=== PATIENT | male | born 1970 | race Caucasian/White ===

== ENCOUNTER 2019-10-20 12:08 | Outpatient (CLI) | payer OTHER, SELFPAY ==
[2019-10-20 12:40] LABS: Basophils Absolute Auto 0.1 K/mm3 (0.0-0.1); Basophils Percent Auto 0.8 % (0.2-1.2); Eosinophils Absolute Auto 0.1 K/mm3 (0-0.3); Eosinophils Percent Auto 1.7 % (0-4.4); Hematocrit 41.8 % (42.0-52.0); Hemoglobin 14.4 g/dL (14.0-18.0); Immature Granulocyte Absolute 0.05 K/mm3 (0.00-0.031); Immature Granulocyte Percent A 0.8 % (0-0.5); Lymphocytes Absolute Auto 1.76 K/mm3 (0.9-3.2); Lymphocytes Percent Auto 29.2 % (18.3-44.2); Mean Corpuscular HGB Conc 34.4 g/dl (32-36); Mean Corpuscular Hemoglobin 30.1 pg (26-34); Mean Corpuscular Volume 87.4 fl (80-100); Mean Platelet Volume 12.5 fl (7.4-10.4); Monocytes Absolute Auto 0.6 K/mm3 (0.1-0.6); Monocytes Percent Auto 9.1 % (2.6-8.5); Neutrophils Absolute Auto 3.5 K/mm3 (1.3-6.7); Neutrophils Percent Auto 58.4 % (45.5-73.1); Platelet Count Result 234 k/mm3 (150-375); Red Blood Count 4.78 M/mm3 (4.6-6.20); Red Cell Distribution Width 13.2 % (11.5-14.5)
[2019-10-20 12:57] LABS: Alanine Aminotransferase 28 U/L (4-50); Albumin Level 4.5 g/dL (3.5-5.1); Alkaline Phosphatase 62 U/L (38-126); Aspartate Amino Transferase 30 U/L (17-59); Bilirubin,Total 0.8 mg/dL (0.2-1.3); Blood Urea Nitrogen 15 mg/dL (9-20); Calcium 9.2 mg/dL (8.4-10.2); Carbon Dioxide 30 mmol/L (22-30); Chloride 98 mmol/L (98-107); Cholesterol 106 mg/dL (0-200); Estimated Glomerular Filt Rate > 60; Glucose 138 mg/dL (75-110); HDL Direct 35 mg/dL; Potassium 3.5 mmol/L (3.4-5.0); Sodium 135 mmol/L (137-145); Triglycerides 112 mg/dL (<150)
[2019-10-20 13:11] LABS: Hemoglobin A1C 8.3 % (<5.7)
[2019-10-20 13:14] LABS: LDL Cholesterol Direct 59 mg/dL
== END 2019-10-20 12:09 | disposition home or self-care (01) ==
DX: I10 Essential (primary) hypertension (principal); R73.09 Other abnormal glucose
CPT/HCPCS: 36415; 80053; 80061; 83036; 85025

== ENCOUNTER 2020-10-22 11:38 | Outpatient (CLI) | payer OTHER, SELFPAY ==
[2020-10-22 12:17] LABS: Alanine Aminotransferase 25 U/L (4-50); Albumin Level 4.6 g/dL (3.5-5.1); Alkaline Phosphatase 57 U/L (38-126); Anion Gap 11 mmol/L (8-16); Aspartate Amino Transferase 28 U/L (17-59); Bilirubin,Total 0.7 mg/dL (0.2-1.3); Blood Urea Nitrogen 15 mg/dL (9-20); Calcium 9.6 mg/dL (8.4-10.2); Carbon Dioxide 27 mmol/L (22-30); Chloride 99 mmol/L (98-107); Cholesterol 115 mg/dL (0-200); Estimated Glomerular Filt Rate > 60; Glucose 108 mg/dL (75-110); HDL Direct 40 mg/dL; Hemoglobin A1C 6.9 % (<5.7); Potassium 3.9 mmol/L (3.4-5.0); Sodium 137 mmol/L (137-145); Triglycerides 105 mg/dL (<150)
[2020-10-22 12:28] LABS: LDL Cholesterol Direct 52 mg/dL
[2020-10-22 12:46] LABS: Creatinine Urine 80.7 mg/dL
[2020-10-22 13:09] LABS: MALB Creatinine Ratio < 7.4 mg/g (0-30); Microalbumin Urine Random < 6.0 mg/L (0-16.7)
== END 2020-10-22 11:39 | disposition home or self-care (01) ==
LOC: ANHLAB 11:40
PROVIDERS: PCP Family Medicine; Visit Provider Family Medicine
DX: E08.65 Diabetes mellitus due to underlying condition with hyperglycemia (principal); E78.6 Lipoprotein deficiency; I10 Essential (primary) hypertension
CPT/HCPCS: 36415; 80053; 80061; 82043; 83036

== ENCOUNTER 2022-02-23 07:42 | Outpatient (CLI) | payer OTHER, SELFPAY ==
--- NOTE | 2022-03-19 18:02 | WPDSLEEPSTUD ---
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 Complains of frequent snoring and fatigue. This has been worsening over the last 2 years. There is a family history with his brother having sleep apnea. He wakes up during the night. He rarely awakens from sleep feeling short of breath. He frequently awakens at night with heartburn, belching or coughing. He frequently snores loudly enough that others complain. He occasionally has trouble sleeping with a cold. He does not gasp for breath at night or have breathing problems at night reported to him by others. Does not sweat excessively at night. Occasionally notices his heart pounding or beating irregularly at night. He rarely falls asleep during the day, rarely falls asleep involuntarily. he does not fall asleep while driving. fall asleep he denies loss of muscle tone with strong emotion. He does not have daytime difficulties with his job due to excessive sleepiness. Does not feel paralyzed on waking or falling asleep. He occasionally has vivid dreamlike scenes upon awakening or falling asleep. He does not feel afraid to go to sleep. He rarely has nightmares. He frequently remembers his dreams. He occasionally has racing thoughts. He does not feel sad or depressed. He occasionally has anxiety. He rarely has muscular tension. He does not notice parts of his body jerking. He does not kick at night. He rarely has crawling and aching feelings in his legs. He rarely has any kind of leg pain at night. He does not have morning jaw pain. Does not grind his teeth at night. He rarely is bothered by pain during the day. He is not awakened by pain at night. He occasionally wakes up feeling stiff in the morning. He rarely wakes up with sore achy muscles. He occasionally has pain in the spine on waking. Normal bedtime is 11:00 p.m. falling asleep within 5 minutes typically waking twice at night for 1-2 minutes. During this time, he changes position. He wakes the morning at 6:00 a.m.. On weekends, bedtime is 11:30 p.m.. Wake-up is 7:00 a.m.. He estimates getting 7 hours of sleep at night. He sometimes takes naps in the afternoon or evening. A short nap is not refreshing. He is usually drowsy for an hour after waking. He feels better in the morning compared to other times of day. Only occasionally does he awaken feeling refreshed. Habits: No tobacco. Caffeine 1 glass of tea a day and 16 oz of coffee a day. No alcohol or recreational drugs. [facility] Past Medical History Medical History Dyslipidemia Hypertension Type 2 diabetes mellitus Social History Social History Smoking status: Never smoker Medications Home Medications Medication Instructions Recorded Confirmed Type amlodipine 10 mg tablet 10 mg PO DAILY 02/07/22 02/07/22 History dulaglutide 0.75 mg/0.5 mL 0.75 mg subcut WEEKLY 02/07/22 02/07/22 History subcutaneous pen injector (Trulicity) eszopiclone 2 mg tablet (Lunesta) 2 mg PO ONCE #1 tablet 02/07/22 02/07/22 Rx losartan 100 1 tablet PO DAILY 02/07/22 02/07/22 History mg-hydrochlorothiazide 25 mg tablet metformin 500 mg tablet 500 mg PO BID 02/07/22 02/07/22 History Sleep Procedure This test was performed using the [employer] Video SleepFliqq multiple channel system including EOG, EEG, submental EMG, EKG, nasal and oral airflow using thermistors and nasal pressure sensors, chest and abdominal belts for body position data, and pulse oximetry. Video monitoring was also performed. The study was scored u
[2022-03-19 18:15] VITALS: BMI 42.9
== END 2022-02-24 06:14 | disposition home or self-care (01) ==
PROVIDERS: PCP Family Medicine; Visit Provider Physician Assistant
DX: G47.33 Obstructive sleep apnea (adult) (pediatric) (principal); G47.10 Hypersomnia, unspecified; Z68.41 Body mass index [BMI] 40.0-44.9, adult
CPT/HCPCS: 95811

== ENCOUNTER 2022-05-09 09:17 | Outpatient (CLI) | payer OTHER, SELFPAY ==
[2022-05-09 10:28] LABS: LDL Cholesterol Direct 68 mg/dL
[2022-05-09 10:30] LABS: Alanine Aminotransferase 29 U/L (6-50); Albumin Level 4.8 g/dL (3.5-5.1); Alkaline Phosphatase 60 U/L (38-126); Anion Gap 9 mmol/L (8-16); Aspartate Amino Transferase 27 U/L (17-59); Bilirubin,Total 0.7 mg/dL (0.2-1.3); Blood Urea Nitrogen 15 mg/dL (9-20); Calcium 9.1 mg/dL (8.4-10.2); Carbon Dioxide 29 mmol/L (22-30); Chloride 99 mmol/L (98-107); Cholesterol 131 mg/dL (0-200); Estimated Glomerular Filt Rate > 60; Glucose 126 mg/dL (65-110); HDL Direct 36 mg/dL; Potassium 3.6 mmol/L (3.4-5.0); Sodium 137 mmol/L (137-145); Triglycerides 113 mg/dL (<150)
[2022-05-09 10:49] LABS: Hemoglobin A1C 7.3 % (<5.7)
[2022-05-09 11:58] LABS: MALB Creatinine Ratio < 10.9 mg/g (0-30); Microalbumin Urine Random < 6.0 mg/L (0-16.7)
== END 2022-05-09 09:18 | disposition home or self-care (01) ==
LOC: ANHLAB 09:19
PROVIDERS: PCP Family Medicine; Visit Provider Family Medicine
DX: E11.9 Type 2 diabetes mellitus without complications (principal)
CPT/HCPCS: 36415; 80053; 80061; 82043; 83036

== ENCOUNTER 2023-07-10 11:55 | Outpatient (CLI) | payer OTHER, SELFPAY ==
[2023-07-10 13:58] LABS: Hemoglobin A1C 7.3 % (<5.7)
[2023-07-10 14:02] LABS: Alanine Aminotransferase 25 U/L (6-50); Albumin Level 4.6 g/dL (3.5-5.1); Alkaline Phosphatase 63 U/L (38-126); Anion Gap 9 mmol/L (8-16); Aspartate Amino Transferase 28 U/L (17-59); Blood Urea Nitrogen 18 mg/dL (9-20); Calcium 9.8 mg/dL (8.4-10.2); Carbon Dioxide 26 mmol/L (22-30); Chloride 99 mmol/L (98-107); Cholesterol 121 mg/dL (0-200); Estimated Glomerular Filt Rate > 60; Glucose 112 mg/dL (65-110); HDL Direct 37 mg/dL; LDL Cholesterol Direct 70 mg/dL; Potassium 3.7 mmol/L (3.4-5.0); Prostate Specific Antigen 0.8 ng/mL (< OR = 4.0); Sodium 134 mmol/L (137-145); Triglycerides 108 mg/dL (<150)
[2023-07-10 14:05] LABS: Creatinine Urine 89.7 mg/dL
[2023-07-10 15:42] LABS: Microalbumin Urine Random < 6.0 mg/L (0-16.7)
[2023-07-10 15:43] LABS: MALB Creatinine Ratio < 6.7 mg/g (0-30)
== END 2023-07-10 11:56 | disposition home or self-care (01) ==
LOC: ANHLAB 11:57
PROVIDERS: PCP Family Medicine; Visit Provider Family Medicine
DX: E11.9 Type 2 diabetes mellitus without complications (principal); Z12.5 Encounter for screening for malignant neoplasm of prostate; E78.2 Mixed hyperlipidemia
CPT/HCPCS: 36415; 80053; 80061; 82043; 83036; 84153; G0103

== ENCOUNTER 2024-02-26 11:58 | Outpatient (CLI) | payer OTHER, SELFPAY ==
[2024-02-26 13:15] LABS: Alanine Aminotransferase 24 U/L (6-50); Albumin Level 4.5 g/dL (3.5-5.1); Alkaline Phosphatase 62 U/L (38-126); Anion Gap 9 mmol/L (4-12); Aspartate Amino Transferase 26 U/L (17-59); Bilirubin,Total 0.8 mg/dL (0.2-1.3); Blood Urea Nitrogen 15 mg/dL (9-20); Calcium 9.3 mg/dL (8.4-10.2); Carbon Dioxide 29 mmol/L (22-30); Chloride 96 mmol/L (98-107); Cholesterol 129 mg/dL (0-200); Estimated Glomerular Filt Rate > 60; Glucose 117 mg/dL (65-110); HDL Direct 39 mg/dL; Potassium 3.6 mmol/L (3.4-5.0); Sodium 134 mmol/L (137-145); Triglycerides 118 mg/dL (<150)
[2024-02-26 13:21] LABS: Hemoglobin A1C 7.2 % (<5.7)
[2024-02-26 13:26] LABS: LDL Cholesterol Direct 66 mg/dL
[2024-02-26 14:32] LABS: Creatinine Urine 82.3 mg/dL
[2024-02-26 14:44] LABS: MALB Creatinine Ratio < 7.3 mg/g (0-30); Microalbumin Urine Random < 6.0 mg/L (0-16.7)
== END 2024-02-26 11:59 | disposition home or self-care (01) ==
LOC: ANHLAB 12:02
PROVIDERS: PCP Family Medicine; Visit Provider Family Medicine
DX: E78.2 Mixed hyperlipidemia (principal); E08.65 Diabetes mellitus due to underlying condition with hyperglycemia; I15.2 Hypertension secondary to endocrine disorders
CPT/HCPCS: 36415; 80053; 80061; 82043; 83036

== ENCOUNTER 2024-11-03 12:37 | Outpatient (CLI) | payer OTHER, SELFPAY ==
--- OUTSIDE RECORDS SUMMARY | 2024-11-03 13:27 | XMS_ITS | Encounter Summary ---
Author Organization 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 Historical Provider Final Res ult * SCAN - LABS (11/06/2016 12:00 AM CDT) Narrative 11/06/2016 12:00 AM CDT Ordered by an unspecified provider. Historical Provider Final Res ult documented in this encounter Visit Diagnoses Not on filedocumented in this encounter Care Teams Self Sealing Fuel Tank Repairer Relationship Specialty Start Date End Date Tyler Cohn MD PCP - General Family Practice 12/09/18 documented as of this encounter
--- OUTSIDE RECORDS SUMMARY | 2024-11-03 13:27 | XMS_ITS | Encounter Summary ---
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 Historical Provider Final Res ult * SCAN - LABS (11/08/2017 12:00 AM CDT) Narrative 11/08/2017 12:00 AM CDT Ordered by an unspecified provider. Historical Provider Final Res ult documented in this encounter Visit Diagnoses Not on filedocumented in this encounter Care Teams Maintenance Worker House Trailer Relationship Specialty Start Date End Date Tyler Cohn MD PCP - General Family Practice 12/09/18 documented as of this encounter
--- OUTSIDE RECORDS SUMMARY | 2024-11-03 13:27 | XMS_ITS | Encounter Summary ---
Author Organization 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 Historical Provider Final Res ult * SCAN - LABS (06/17/2018 12:00 AM REGULATORY AFFAIRS ASSOCIATE) Narrative 06/17/2018 12:00 AM REGULATORY AFFAIRS ASSOCIATE Ordered by an unspecified provider. Historical Provider Final Res ult documented in this encounter Visit Diagnoses Not on filedocumented in this encounter Care Teams Cop Winder Relationship Specialty Start Date End Date Tyler Cohn MD PCP - General Family Practice 12/09/18 documented as of this encounter
--- OUTSIDE RECORDS SUMMARY | 2024-11-03 13:27 | XMS_ITS | Encounter Summary ---
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 Historical Provider Final Res ult documented in this encounter Visit Diagnoses Not on filedocumented in this encounter Care Teams Family Sociologist Relationship Specialty Start Date End Date Tyler Cohn MD PCP - General Family Practice 12/09/18 documented as of this encounter
--- OUTSIDE RECORDS SUMMARY | 2024-11-03 13:27 | XMS_ITS | Encounter Summary ---
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 Historical Provider Final Res ult * SCAN - LABS (08/15/2017 12:00 AM CDT) Narrative 08/15/2017 12:00 AM CDT Ordered by an unspecified provider. Historical Provider Final Res ult documented in this encounter Visit Diagnoses Not on filedocumented in this encounter Care Teams Aviation Technician Aircraft Relationship Specialty Start Date End Date Tyler Conh MD PCP - General Family Practice 12/09/18 documented as of this encounter
--- OUTSIDE RECORDS SUMMARY | 2024-11-03 13:28 | XMS_ITS | Clinical Summary ---
Author Organization [facility] [place] [address] [facility] alicia Address [address] [facility] [place] [address] Care Team Providers Care Horizontal Resaw Operator Name Role Phone Tyler Cohn MD Primary Care Provider [phone]- [phone] Allergies No known active allergies Medications metoprolol tartrate (LOPRESSOR) 25 mg immediate release tablet TAKE 1 TABLET BY MOUTH TWICE DAILY 180 tablet 5 Active metFORMIN (GLUCOPHAGE) 500 mg tablet TAKE 1 TABLET BY MOUTH TWICE DAILY WITH MEALS 180 tablet 5 Active losartan-hydro chlorothiazide (HYZAAR) 100-25 mg per tablet Take 1 tablet by mouth daily 90 tablet 5 Active amLODIPine (NORVASC) 10 mg tablet TAKE 1 TABLET BY MOUTH DAILY 90 tablet 5 Active dulaglutide (Trulicity) 1.5 mg/0.5 mL pen injector INJECT 1 SYRINGE UNDER THE SKIN EVERY 7 DAYS 2 mL 5 5 Active dulaglutide (TRULICITY) 1.5 mg/0.5 mL pen injector Inject 0.5 mL (1.5 mg total) under the skin every 7 days 2 mL 3 4 10/25/19 25 Discontinued Active Problems Problem Noted Date Diagnosed Date Mixed hyperlipidemia 05/10/2022 Assessment & Plan (02/27/2024 8:52 AM CDT): Needs repeat lipids. Recommend atorvastatin. Atorvastatin declined. Assessment & Plan (07/10/2023 4:30 PM PRODUCTION CONTROL EXPERT): Lifestyle Management but needs repeat lipids Assessment & Plan (09/22/2022 1:09 PM CDT): Lifestyle management. Needs repeat lipids Assessment & Plan (05/10/2022 10:25 AM PRODUCTION CONTROL EXPERT): Lifestyle management but needs repeat lipids. Apnea 10/31/2021 Type 2 diabetes mellitus wit h hyperglycemia, without long-term current use of insulin 2021 Assessment & Plan (02/27/2024 3:27 PM CDT): A1c is still higher than goal. Recommend increase Trulicity to 1.5 mg weekly. Maintain metformin at 500 mg b.i.d.. Assessment & Plan (09/25/2022 9:51 AM CDT): Last A1c 7.3 but needs repeat A1c. Repeat labs ordered. Continue metformin/Trulicity same dosage. Assessment & Plan (05/11/2022 11:39 AM PRODUCTION CONTROL EXPERT): A1c today. A1c is 7.3 and improved from previously but declines increased dose of Trulicity as recommended. Will re-evaluate in 4 months Continue metformin/Trulicity at same dosage. Well controlled. Assessment & Plan (2021 1:31 PM CDT): A1c today. Continue metformin/Trulicity at same dosage. Well controlled. Needs full diabetic labs next visit. Also needs diabetic eye exam documentation. Acute prostatitis 02/28/2021 Assessment & Plan (03/24/2021 2:34 PM CDT): Resolution of frequency and dysuria. Finish 1 month of Cipro. Assessment & Plan (02/28/2021 2:11 PM CDT): Acute prostatitis with systemic symptoms with chills and fever. PH 7 some leukocytes and hematuria gross. Treat with Cipro Gross hematuria 02/28/2021 Assessment & Plan (03/28/2021 8:18 AM PRODUCTION CONTROL EXPERT): Needs repeat urine. Repeat urine shows no blood and no leukocyte-will follow-up p.r.n. and next scheduled appointment next month Assessment & Plan (02/28/2021 2:04 PM CDT): Will need to be recheck to be sure clears 1 infection gets better Chills 02/28/2021 Assessment & Plan (03/24/2021 2:33 PM CDT): Resolved. Assessment & Plan (02/28/2021 2:13 PM CDT): Indicating systemic involvement in if not resolving within few days needs to return Fever 02/28/2021 Assessment & Plan (02/28/2021 2:14 PM CDT): Indicating systemic involvement if not better within few days needs to return Diabetes mellitus due to und erlying condition with hyperglycemia, without long-term current use of insulin 04/14/2020 Assessment & Plan (07/10/2023 4:28 PM PRODUCTION CONTROL EXPERT): A1c today. Assessment & Plan (10/24/2020 1:38 PM CDT): Needs repeat A1c. Recommend increase Trulicity to 1.5 mg weekly Assessment & Plan (04/20/2020 10:09 AM PRODUCTION CONTROL EXPERT): He will get A1c done through work. We will also get other labs. He is tolerating the lower dose of Trulicity without side effects. If need be we can increase the Trulicity dosage but will depend on labs Loud snoring 02/18/2019 Assessment & Plan (10/24/2020 1:39 PM CDT): Needs sleep study Assessment & Plan (04/20/2020 10:09 AM PRODUCTION CONTROL EXPERT): Again recommend sleep study and discussed risk of not treating sleep apnea. Will try and reschedule sleep study. Assessment & Plan (10/20/2019 9:27 AM CDT): Encourage sleep study. Discussed risk of not treating sleep apnea. Assessment & Plan (02/18/2019 8:53 AM CDT): Patient also high risk with increased neck size and weight-family history sleep apnea Low HDL (under 40) 12/13/2018 Assessment & Plan (2021 1:32 PM CDT): Lifestyle management but needs repeat lipids. Assessment & Plan (10/24/2020 1:39 PM CDT): Needs repeat labs. Dietary management. Encourage exercise Assessment & Plan (04/14/2020 10:26 AM PRODUCTION CONTROL EXPERT): Encourage weight loss and increased exercise. Morbid obesity with BMI of 40.0-44.9, adult 01/20 Assessment & Plan (02/27/2024 8:53 AM CDT): BMI Follow-up includes: nutrition counseling and exercise counseling. Assessment & Plan (07/10/2023 4:30 PM PRODUCTION CONTROL EXPERT): BMI Follow-up includes: nutrition counseling and exercise counseling. Assessment & Plan (09/22/2022 1:10 PM CDT): BMI Follow-up includes: nutrition counseling and exercise counseling. Assessment & Plan (05/10/2022 10:26 AM PRODUCTION CONTROL EXPERT): BMI Follow-up includes: nutrition counseling and exercise counseling. Assessment & Plan (2021 1:33 PM CDT): BMI Follow-up includes: nutrition counseling and exercise counseling. Assessment & Plan (10/24/2020 1:40 PM CDT): BMI Follow-up includes: nutrition counseling and exercise counseling. Assessment & Plan (10/20/2019 9:28 AM CDT): Patient was advised to lose weight. Discussed 1/2 to 1 lb per week as a good goal. Discussed that reducing weight by 500 calories per day should result in weight loss of about a lb per week. Encouraged efforts to maintain adequate protein of more than 60 g per day. Encouraged reducing refined starches and diet especially bread, rice, pasta, and cereal. Avoid juices and sugared drinks. Discussed that 5-10% weight loss can lead to improvement in health outcomes for weight related conditions. Discussed behavioral measures. Recommended regular weight monitoring as well as some moderate with a food diary.BMI Follow-up includes: nutrition counseling and exercise counseling. Assessment & Plan (02/17/2019 12:57 PM CDT): Patient was advised to lose weight. Discussed 1/2 to 1 lb per week as a good goal. Discussed that reducing weight by 500 calories per day should result in weight loss of about a lb per week. Encouraged efforts to maintain adequate protein of more than 60 g per day. Encouraged reducing refined starches and diet especially bread, rice, pasta, and cereal. Avoid juices and sugared drinks. Discussed that 5-10% weight loss can lead to improvement in health outcomes for weight related conditions. Discussed behavioral measures. Recommended regular weight monitoring as well as some moderate with a food diary.BMI Follow-up includes: nutrition counseling and exercise counseling. Hypertension associated with diabetes 08/30/2015 Assessment & Plan (02/27/2024 8:51 AM CDT): Continue amlodipine/losartan/metoprolol at same dosage. Well controlled. Assessment & Plan (07/10/2023 4:25 PM PRODUCTION CONTROL EXPERT): Continue amlodipine/Hyzaar/metoprolol at same dosage. Well controlled. Assessment & Plan (09/22/2022 1:05 PM CDT): Continue amlodipine/losartan/HCTZ/metoprolol at same dosage. Well controlled. Assessment & Plan (05/11/2022 11:39 AM PRODUCTION CONTROL EXPERT): Con continue amlodipine and Hyzaar at same dosage. Because of insurance we will substitute Lopressor for Bystolic. Assessment & Plan (2021 1:32 PM CDT): Continue amlodipine/Coreg/Hyzaar at same dosage. Well controlled. Assessment & Plan (10/24/2020 1:39 PM CDT): Continue losartan/HCTZ/carvedilol/amlodipine at same dosage. Well controlled. Assessment & Plan (04/14/2020 10:27 AM PRODUCTION CONTROL EXPERT): Continue medication at same dosage. Well controlled. Assessment & Plan (10/20/2019 9:27 AM CDT): Continue medication at same dosage. Well controlled. Assessment & Plan (02/18/2019 9:15 AM CDT): Blood pressure needs better control and I will increase his losartan to losartan HCTZ Resolved Problems Problem Noted Date Diagnosed Date Resolved Date Mounika type IV lipidemia 05/10/2022 05/10/2022 Tinea corporis 02/18/2019 08/18/2020 Assessment & Plan (10/21/2019 1:22 PM CDT): Almost Resolved Assessment & Plan (02/18/2019 8:57 AM CDT): Will treat with Lamisil Right inguinal pain 12/13/2018 12/14/19 19 Left groin pain 12/13/2018 10/20/2019 Assessment & Plan (02/18/2019 8:57 AM CDT): Resolved Elevated glucose 08/30/2015 04/14/2020 Assessment & Plan (10/21/2019 1:25 PM CDT): since since ThNeeds A1c. Continue medication at same dosage. With this A1c was 8.3. We will start patient on Trulicity. Re-evaluate test is 3-4 months. Some time was spent re-evaluating and discussing risks benefits of various medication options Assessment & Plan (02/17/2019 12:56 PM CDT): Needs CMP with A1c. Patient was encouraged to decrease the sugar and starch in diet. This means avoiding juices and sugar sweetened drinks. Patient should limit REFINED carbohydrates such as bread, rice, cereal pasta, and mashed potatoes. Regular exercise for more than 30 minutes t most days was encouraged to further improve blood sugar. The main fruit to avoid are grapes , pineapple, and bananas. Encouraged to maintain vegetables. Immunizations Immunization Administration Dates Next Due Influenza, Trivalent, Preser vative Free, Intramuscular 03/11/2016 Influenza, Unspecified 02/28/2024(Deferr ed: Patient decision),03/27/2023,03/27/2022,2019 Pfizer SARS-CoV-2 Monovalent Vaccination (12+ Yrs) PURPLE 05/29/2020,05/08/2020 Surgical History Surgery Date Site/Laterality Comments APPENDECTOMY Medical History Medical History Date Comments Hypertension Low HDL (under 40) History of hypokalemia Pure hypercholesterolemia Chronic fatigue Allergic rhinitis Insomnia Anxiety disorder Family History Medical History Relation Name Comments Cancer Father Hypertension Father Hypertension Mother Relation Name Status Comments Father Mother Social History Tobacco Use Types Packs/Day Years Used Date Smoking Tobacco: Never Smokeless Tobacco: Never Alcohol Use Standard Drinks/Week Comments Yes 0 (1 standard drink = 0.6 oz pur e alcohol) every six months AUDIT-C Answer Date Recorded Q1: How often do you have a drink containing alcohol? Never 02/28/2024 Q2: How many drinks containi ng alcohol do you have on a typical day when you are drinking? Patient does not drink Q3: How often do you have si x or more drinks on one occasion? Never 02/28/2024 PHQ-2 Answer Date Recorded PHQ-2 Total Score (If total score is 3 or more points, staff should administer the PHQ-9) 0 02/28/2024 Sex and Gender Information Value Date Recorded Sex Assigned at Not on file Legal Sex Male 8:54 PM PRODUCTION CONTROL EXPERT Gender Identity Not on file Sexual Orientation Not on file Obstetrics History Last Filed Vital Signs Vital Sign Reading Time Taken Comments Blood Pressure 126/84 02/28/2024 8:40 AM CDT Pulse 80 02/28/2024 8:40 AM CDT Temperature 36.4 C (97.6 F) 02/28/2024 8:40 AM CDT Respiratory Rate 20 02/28/2024 8:40 AM CDT Oxygen Saturation 97% 02/28/2024 8:40 AM CDT Inhaled Oxygen Concentration - - Weight 137.7 kg (303 lb 9.6 oz) 02/28/2024 8:40 AM CDT Height 180.3 cm (5' 10.98) 02/28/2024 8:40 AM C DT Body Mass Index 42.36 02/28/2024 8:40 AM CDT Plan of Treatment Health Maintenance Due Date Last Done Comments Colon Cancer Screening-Colonoscopy 1970 Hepatitis C Screening 1970 Prostate Cancer Screening-PSA 1970 DTaP/Tdap/Td Vaccine (1 - Tdap) 1981 Hepatitis B Screening 1988 Regular Well Visit/Exam 18-64 1988 Pneumococcal vaccine <65 (1 of 2 - PCV) 1989 Zoster Vaccine (1 of 2) 2020 Covid-19 Vaccine (3 - 2023-2 5 season) 2024 05/29/2020, 05/08/2020 Foot Exam 07/12/2024 07/12/2023, 05/0 12/2022, 05/11/2022, Additional history exists Hemoglobin A1C 08/26/2024 02/26/2024, 05/0 12/2022, 05/09/2022, Additional history exists Influenza Vaccine (Season Ended) 2025 03/27/2023, 03/27/2022, 03/20/2020, Additional history exists Albumin Creatinine Ratio, Urine 02/25/2025 , 05/09/2022 Lipid Panel 02/25/2025 02/26/2024, 05/09/2022 eGFR 02/25/2025 02/26/2024, 06/21, 10/22/2020 Depression Screening 02/27/2025 02/28/2024, 07/12/2023, 09/25/2022, Additional history exists Dilated Eye Exam 07/22/2025 07/23/2023 Procedures Procedure Name Priority Date/Time Associated Diagnosis Comments COMPREHENSIVE METABOLIC PANEL Routine 02/26/2024 Hypertension associated with diabetes (HCC) Diabetes mellitus due to underlying condition with hyperglycemia, without long-term current use of insulin (HCC) HEMOGLOBIN A1C Routine 02/26/2024 Diabetes mellitus due to underlying condition with hyperglycemia, without long-term current use of insulin (HCC) LIPID PANEL Routine 02/26/2024 Hypertension associated with diabetes (HCC) Diabetes mellitus due to underlying condition with hyperglycemia, without long-term current use of insulin (HCC) Mixed hyperlipidemia ALBUMIN CREATININE RATIO, URINE Routine 02/26/2024 Diabetes mellitus due to underlying condition with hyperglycemia, without long-term current use of insulin (HCC) DIABETIC EYE EXAM Routine 07/23/2023 2:4 6 PM PRODUCTION CONTROL EXPERT from Last 3 Months or Most Recently Relevant to Health Maintenance Results * Albumin Creatinine Ratio, Urine (02/26/2024) SCRIBED Creatinine, Urine 82.3 - - - EXTERNAL LAB SCRIBED Microalbumin <6.0 0 - 16 EXTERNAL LAB SCRIBED Microalb/Creat Ratio <7.3 0 - 30 EXTERNAL LAB Urine 02/26/2024 Tyler Cohn MD LAB URINE ORDERABLES Final Result Performing Organization Address City/[facility]/ZIP Co de Phone Number EXTERNAL LAB * (ABNORMAL) Hemoglobin A1c (02/26/2024) SCRIBED Hemoglobin A1c 7.2(A) 4.5 - 5.7 % EXTERNAL LAB Blood 02/26/2024 Tyler Cohn MD LAB BLOOD ORDERABLES Final Result EXTERNAL LAB * Lipid panel (02/26/2024) SCRIBED Cholesterol, Total 129 0 - 200 EXTERNAL LAB SCRIBED HDL 39 35 - 99 EXTERNAL LAB SCRIBED LDL 66 0 - 130 EXTERNAL LAB SCRIBED Triglycerides 118 0 - 150 EXTERNAL LAB Blood 02/26/2024 Tyler Cohn MD LAB BLOOD ORDERABLES Final Result EXTERNAL LAB * (ABNORMAL) Comprehensive metabolic panel (02/26/2024) SCRIBED Sodium 134(A) 137 - 145 mmol/L EXTERNAL LAB SCRIBED Potassium 3.6 3.4 - 5.0 mmol/L EXTERNAL LAB SCRIBED Chloride 96(A) 98 - 107 mmol/L EXTERNAL LAB SCRIBED Carbon Dioxide 29 22 - 30 mmol/L EXTERNAL LAB SCRIBED Anion Gap 9 4 - 12 mmol/L EXTERNAL LAB SCRIBED Urea Nitrogen (BUN) 15 9 - 20 mg/dl EXTERNAL LAB SCRIBED Creatinine 1.00 0.7 - 1.3 mg/dl EXTERNAL LAB SCRIBED Glucose 117(A) 65 - 110 mg/dl EXTERNAL LAB SCRIBED Calcium 9.3 8.4 - 10.2 mg/dl EXTERNAL LAB SCRIBED Bilirubin 0.8 0.2 - 1.3 mg/dl EXTERNAL LAB SCRIBED Plasma Protein 8.0 6.3 - 8.2 g/dl EXTERNAL LAB SCRIBED Albumin 4.5 3.5 - 5.1 g/dl EXTERNAL LAB SCRIBED Alkaline Phosphatase 62 38 - 126 Units/L EXTERNAL LAB SCRIBED Alanine Transaminase (ALT) 24 6 - 50 Units/L EXTERNAL LAB SCRIBED Aspartate Transaminase (AST) 26 17 - 59 Units/L EXTERNAL LAB SCRIBED eGFR in 0 0 - 0 EXTERNAL LAB SCRIBED eGFR in NonAfrican Belarusian >60 0.7 - 1.3 EXTERNAL LAB Blood 02/26/2024 Tyler Cohn MD LAB BLOOD ORDERABLES Final Result EXTERNAL LAB * Diabetic Eye Exam (07/23/2023 2:46 PM PRODUCTION CONTROL EXPERT) Historical Provider HEALTH MAINTENANCE Final Result from Last 3 Months or Most Recently Relevant to Health Maintenance Insurance [facility] Care Teams Horizontal Resaw Operator Relationship Specialty Start Date End Date Tyler Cohn MD PCP - General Family Practice 12/09/18
--- OUTSIDE RECORDS SUMMARY | 2024-11-03 13:28 | XMS_ITS | Referral Summary ---
Author Organization [facility] [place] [address] [facility] alicia Address [address] [facility] [place] [address] Care Team Providers Care Teacher Private Name Role Phone Tyler Cohn MD Primary Care Provider +1- [phone] Allergies No known active allergies Medications metoprolol [...] declined. Assessment & Plan (07/10/2023 4:30 PM HEAVY EQUIPMENT ENGINE MECHANIC): Lifestyle Management but needs repeat lipids Assessment & Plan (09/22/2022 1:09 PM CDT): Lifestyle management. Needs repeat lipids Assessment & Plan (05/10/2022 10:25 AM HEAVY EQUIPMENT ENGINE MECHANIC): Lifestyle management but needs repeat lipids. Apnea [...] dosage. Assessment & Plan (05/11/2022 11:39 AM HEAVY EQUIPMENT ENGINE MECHANIC): A1c today. A1c is 7.3 and improved [...] 02/28/2021 Assessment & Plan (03/28/2021 8:18 AM HEAVY EQUIPMENT ENGINE MECHANIC): Needs repeat urine. Repeat urine shows no [...] 04/14/2020 Assessment & Plan (07/10/2023 4:28 PM HEAVY EQUIPMENT ENGINE MECHANIC): A1c today. Assessment & Plan (10/24/2020 1:38 PM CDT): Needs repeat A1c. Recommend increase Trulicity to 1.5 mg weekly Assessment & Plan (04/20/2020 10:09 AM HEAVY EQUIPMENT ENGINE MECHANIC): He will get A1c done through work. We will also get other labs. He is tolerating the lower dose of Trulicity without side effects. If need be we can increase the Trulicity dosage but will depend on labs Loud snoring 02/18/2019 Assessment & Plan (10/24/2020 1:39 PM CDT): Needs sleep study Assessment & Plan (04/20/2020 10:09 AM HEAVY EQUIPMENT ENGINE MECHANIC): Again recommend sleep study and discussed risk [...] exercise Assessment & Plan (04/14/2020 10:26 AM HEAVY EQUIPMENT ENGINE MECHANIC): Encourage weight loss and increased exercise. Morbid obesity with BMI of 40.0-44.9, adult 01/20 Assessment & Plan (02/27/2024 8:53 AM CDT): BMI Follow-up includes: nutrition counseling and exercise counseling. Assessment & Plan (07/10/2023 4:30 PM HEAVY EQUIPMENT ENGINE MECHANIC): BMI Follow-up includes: nutrition counseling and exercise counseling. Assessment & Plan (09/22/2022 1:10 PM CDT): BMI Follow-up includes: nutrition counseling and exercise counseling. Assessment & Plan (05/10/2022 10:26 AM HEAVY EQUIPMENT ENGINE MECHANIC): BMI Follow-up includes: nutrition counseling and exercise [...] controlled. Assessment & Plan (07/10/2023 4:25 PM HEAVY EQUIPMENT ENGINE MECHANIC): Continue amlodipine/Hyzaar/metoprolol at same dosage. Well controlled. Assessment & Plan (09/22/2022 1:05 PM CDT): Continue amlodipine/losartan/HCTZ/metoprolol at same dosage. Well controlled. Assessment & Plan (05/11/2022 11:39 AM HEAVY EQUIPMENT ENGINE MECHANIC): Con continue amlodipine and Hyzaar at same dosage. Because of insurance we will substitute Lopressor for Bystolic. Assessment & Plan (2021 1:32 PM CDT): Continue amlodipine/Coreg/Hyzaar at same dosage. Well controlled. Assessment & Plan (10/24/2020 1:39 PM CDT): Continue losartan/HCTZ/carvedilol/amlodipine at same dosage. Well controlled. Assessment & Plan (04/14/2020 10:27 AM HEAVY EQUIPMENT ENGINE MECHANIC): Continue medication at same dosage. Well controlled. [...] SARS-CoV-2 Monovalent Vaccination (12+ Yrs) PURPLE 05/29/2020,05/08/2020 Social History Tobacco Use Types Packs/Day Years [...] on file Legal Sex Male 8:54 PM HEAVY EQUIPMENT ENGINE MECHANIC Gender Identity Not on file Sexual Orientation Not on file Last Filed Vital Signs Vital Sign Reading [...] 02/28/2024 8:40 AM CDT Plan of Treatment Not on file Procedures Procedure Name Priority Date/Time Associated Diagnosis [...] EYE EXAM Routine 07/23/2023 2:4 6 PM HEAVY EQUIPMENT ENGINE MECHANIC from Last 3 Months or Most Recently Relevant to Health Maintenance Results * Albumin Creatinine Ratio, Urine (02/26/2024) SCRIBED Creatinine, Urine 82.3 - - - EXTERNAL LAB SCRIBED Microalbumin <6.0 0 - 16 EXTERNAL LAB SCRIBED Microalb/Creat Ratio <7.3 0 - 30 EXTERNAL LAB Urine 02/26/2024 Tyler Cohn MD LAB URINE ORDERABLES Final Result EXTERNAL LAB * (ABNORMAL) Hemoglobin A1c (02/26/2024) [...] LAB * (ABNORMAL) Comprehensive metabolic panel (02/26/2024) Pathologist [facility] SCRIBED Sodium 134(A) 137 - 145 mmol/L [...] 0 EXTERNAL LAB SCRIBED eGFR in NonAfrican Swiss >60 0.7 - 1.3 EXTERNAL LAB Blood 02/26/2024 us Tyler Cohn MD LAB BLOOD ORDERABLES Final Result EXTERNAL LAB * Diabetic Eye Exam (07/23/2023 2:46 PM HEAVY EQUIPMENT ENGINE MECHANIC) us Historical Provider HEALTH MAINTENANCE Final Result from Last 3 Months or Most Recently Relevant to Health Maintenance [place] [address] [address] Care Teams Teacher Private Relationship Specialty Start Date End Date Tyler Cohn MD PCP - General Family Practice 12/09/18
[2024-11-03 13:45] LABS: Alanine Aminotransferase 30 U/L (6-50); Albumin Level 4.5 g/dL (3.5-5.1); Alkaline Phosphatase 60 U/L (38-126); Aspartate Amino Transferase 32 U/L (17-59); Bilirubin,Total 0.9 mg/dL (0.2-1.3); Blood Urea Nitrogen 14 mg/dL (9-20); Calcium 9.6 mg/dL (8.4-10.2); Carbon Dioxide 26 mmol/L (22-30); Chloride 99 mmol/L (98-107); Cholesterol 125 mg/dL (0-200); Estimated Glomerular Filt Rate > 60; Glucose 118 mg/dL (65-110); HDL Direct 42 mg/dL; Potassium 3.6 mmol/L (3.4-5.0); Total Protein 8.1 g/dL (6.3-8.2); Triglycerides 122 mg/dL (<150)
[2024-11-03 13:53] LABS: Hemoglobin A1C 7.2 % (<5.7)
[2024-11-03 13:57] LABS: LDL Cholesterol Direct 59 mg/dL
[2024-11-03 15:06] LABS: Anion Gap 10 mmol/L (4-12); Sodium 135 mmol/L (137-145)
== END 2024-11-03 12:38 | disposition home or self-care (01) ==
LOC: ANHLAB 12:39
PROVIDERS: PCP Family Medicine; Visit Provider Family Medicine
DX: I15.2 Hypertension secondary to endocrine disorders (principal); E11.59 Type 2 diabetes mellitus with other circulatory complications; E11.65 Type 2 diabetes mellitus with hyperglycemia
CPT/HCPCS: 36415; 80053; 80061; 83036

== ENCOUNTER 2025-05-06 11:22 | Outpatient (CLI) | payer OTHER, SELFPAY ==
[2025-05-06 12:29] LABS: Alanine Aminotransferase 26 U/L (6-50); Albumin Level 4.5 g/dL (3.5-5.1); Alkaline Phosphatase 69 U/L (38-126); Anion Gap 8 mmol/L (4-12); Aspartate Amino Transferase 29 U/L (17-59); Bilirubin,Total 0.8 mg/dL (0.2-1.3); Blood Urea Nitrogen 16 mg/dL (9-20); Calcium 9.9 mg/dL (8.4-10.2); Carbon Dioxide 28 mmol/L (22-30); Chloride 100 mmol/L (98-107); Cholesterol 123 mg/dL (0-200); Estimated Glomerular Filt Rate > 60; Glucose 124 mg/dL (65-110); HDL Direct 39 mg/dL; Potassium 3.8 mmol/L (3.4-5.0); Sodium 136 mmol/L (137-145); Total Protein 8.1 g/dL (6.3-8.2); Triglycerides 115 mg/dL (<150)
[2025-05-06 12:42] LABS: Hemoglobin A1C 7.1 % (<5.7)
[2025-05-06 13:04] LABS: Prostate Specific Antigen 0.9 ng/mL (< OR = 4.0)
[2025-05-06 13:17] LABS: Hematocrit 44.6 % (42.0-52.0); Hemoglobin 15.3 g/dL (14.0-18.0); Immature Granulocyte Percent A 0.7 % (0-0.5); Lymphocytes Absolute Auto 1.70 K/mm3 (0.9-3.2); Mean Corpuscular HGB Conc 34.3 g/dl (32-36); Mean Corpuscular Hemoglobin 30.4 pg (26-34); Mean Corpuscular Volume 88.7 fl (80-100); Nucleated Red Blood Cells Absolute Auto 0.000 K/mm3 (0.0-0.012); Nucleated Red Blood Cells Perc 0.0 % (0.0-0.2); Platelet Count Result 255 k/mm3 (150-375); Red Blood Count 5.03 M/mm3 (4.6-6.20); White Blood Count 6.8 K/mm3 (4.5-10.0)
--- OUTSIDE RECORDS SUMMARY | 2025-05-06 13:42 | XMS_ITS | Clinical Summary ---
Author Organization [facility] [place] [address] [facility] alicia Address [address] [facility] [place] [address] Care Team Providers Care Manager Mba Name Role Phone Tyler Cohn MD Primary Care Provider +1- [phone] Allergies No known active allergies Medications amLODIPine (NORVASC) 10 mg tablet Take 1 tablet (10 mg total) by mouth daily 90 tablet 1 11/05/2024 Active dulaglutide (Trulicity) 1.5 mg/0.5 mL pen injector Inject 0.5 mL (1.5 mg total) under the skin once a week 6 mL 1 11/05/2024 Active losartan-hydroch lorothiazide (HYZAAR) 100-25 mg per tablet Take 1 tablet by mouth daily 90 tablet 1 11/05/2024 Active metFORMIN (GLUCOPHAGE) 500 mg tablet Take 1 tablet (500 mg total) by mouth 2 (two) times a day with meals 180 tablet 1 11/05/2024 Active metoprolol tartrate (LOPRESSOR) 25 mg immediate release tablet Take 1 tablet (25 mg total) by mouth 2 (two) times a day 180 tablet 1 11/05/2024 Active Active Problems Problem Noted Date Diagnosed Date Mixed hyperlipidemia 05/10/2022 Assessment & Plan (02/27/2024 8:52 AM CDT): Needs repeat lipids. Recommend atorvastatin. Atorvastatin declined. Assessment & Plan (07/10/2023 4:30 PM AUDOGRAPH OPERATOR): Lifestyle Management but needs repeat lipids Assessment & Plan (09/22/2022 1:09 PM CDT): Lifestyle management. Needs repeat lipids Assessment & Plan (05/10/2022 10:25 AM AUDOGRAPH OPERATOR): Lifestyle management but needs repeat lipids. Apnea 10/31/2021 Type 2 diabetes mellitus wit h hyperglycemia, without long-term current use of insulin 2021 Assessment & Plan (11/05/2024 8:23 AM CDT): A A1c same. Continue Trulicity/metformin at same dosage. Well controlled. Recommend increase metformin dosage. Additional medicine declined but he has not been able to get the Trulicity on a regular basis though he is changing pharmacies. Assessment & Plan (02/27/2024 3:27 PM CDT): A1c is still higher than goal. Recommend increase Trulicity to 1.5 mg weekly. Maintain metformin at 500 mg b.i.d.. Assessment & Plan (09/25/2022 9:51 AM CDT): Last A1c 7.3 but needs repeat A1c. Repeat labs ordered. Continue metformin/Trulicity same dosage. Assessment & Plan (05/11/2022 11:39 AM AUDOGRAPH OPERATOR): A1c today. A1c is 7.3 and improved [...] 02/28/2021 Assessment & Plan (03/28/2021 8:18 AM AUDOGRAPH OPERATOR): Needs repeat urine. Repeat urine shows no [...] 04/14/2020 Assessment & Plan (07/10/2023 4:28 PM AUDOGRAPH OPERATOR): A1c today. Assessment & Plan (10/24/2020 1:38 PM CDT): Needs repeat A1c. Recommend increase Trulicity to 1.5 mg weekly Assessment & Plan (04/20/2020 10:09 AM AUDOGRAPH OPERATOR): He will get A1c done through work. We will also get other labs. He is tolerating the lower dose of Trulicity without side effects. If need be we can increase the Trulicity dosage but will depend on labs Loud snoring 02/18/2019 Assessment & Plan (10/24/2020 1:39 PM CDT): Needs sleep study Assessment & Plan (04/20/2020 10:09 AM AUDOGRAPH OPERATOR): Again recommend sleep study and discussed risk of not treating sleep apnea. Will try and reschedule sleep study. Assessment & Plan (10/20/2019 9:27 AM CDT): Encourage sleep study. Discussed risk of not treating sleep apnea. Assessment & Plan (02/18/2019 8:53 AM CDT): Patient also high risk with increased neck size and weight-family history sleep apnea Low HDL (under 40) 12/13/2018 Assessment & Plan (11/05/2024 8:23 AM CDT): Lipids have been good with lifestyle management except for low HDL. Strongly recommend consider atorvastatin in setting of diabetes for non cholesterol benefits. Still declines cholesterol medicine. Assessment & Plan (2021 1:32 PM CDT): Lifestyle management but needs repeat lipids. Assessment & Plan (10/24/2020 1:39 PM CDT): Needs repeat labs. Dietary management. Encourage exercise Assessment & Plan (04/14/2020 10:26 AM AUDOGRAPH OPERATOR): Encourage weight loss and increased exercise. Morbid obesity with BMI of 40.0-44.9, adult 01/20 Assessment & Plan (11/03/2024 1:13 PM CDT): BMI Follow-up includes: nutrition counseling and exercise counseling. Assessment & Plan (02/27/2024 8:53 AM CDT): BMI Follow-up includes: nutrition counseling and exercise counseling. Assessment & Plan (07/10/2023 4:30 PM AUDOGRAPH OPERATOR): BMI Follow-up includes: nutrition counseling and exercise counseling. Assessment & Plan (09/22/2022 1:10 PM CDT): BMI Follow-up includes: nutrition counseling and exercise counseling. Assessment & Plan (05/10/2022 10:26 AM AUDOGRAPH OPERATOR): BMI Follow-up includes: nutrition counseling and exercise [...] associated with diabetes 08/30/2015 Assessment & Plan (11/03/2024 1:10 PM CDT): Continue Hyzaar/amlodipine/metoprolol at same dosage. Well controlled. Assessment & Plan (02/27/2024 8:51 AM CDT): Continue amlodipine/losartan/metoprolol at same dosage. Well controlled. Assessment & Plan (07/10/2023 4:25 PM AUDOGRAPH OPERATOR): Continue amlodipine/Hyzaar/metoprolol at same dosage. Well controlled. Assessment & Plan (09/22/2022 1:05 PM CDT): Continue amlodipine/losartan/HCTZ/metoprolol at same dosage. Well controlled. Assessment & Plan (05/11/2022 11:39 AM AUDOGRAPH OPERATOR): Con continue amlodipine and Hyzaar at same dosage. Because of insurance we will substitute Lopressor for Bystolic. Assessment & Plan (2021 1:32 PM CDT): Continue amlodipine/Coreg/Hyzaar at same dosage. Well controlled. Assessment & Plan (10/24/2020 1:39 PM CDT): Continue losartan/HCTZ/carvedilol/amlodipine at same dosage. Well controlled. Assessment & Plan (04/14/2020 10:27 AM AUDOGRAPH OPERATOR): Continue medication at same dosage. Well controlled. [...] Medical History Medical History Date Comments Hypertension 1998 Low HDL (under 40) History of hypokalemia Pure hypercholesterolemia Chronic fatigue Allergic rhinitis Insomnia Anxiety disorder Family History Medical History Relation Name Comments Cancer Father Girma Hypertension Father Girma Hypertension Mother Juan Relation Name Status Comments Father Girma Mother Juan Social History Tobacco Use Types Packs/Day Years [...] points, staff should administer the PHQ-9) 0 11/05/2024 Sex and Gender Information Value Date Recorded Sex Assigned at Not on file Legal Sex Male 8:54 PM AUDOGRAPH OPERATOR Gender Identity Not on file Sexual Orientation Not on file Last Filed Vital Signs Vital Sign Reading Time Taken Comments Blood Pressure 134/80 11/05/2024 8:01 AM CDT Pulse 92 11/05/2024 8:01 AM CDT Temperature 36.9 C (98.4 F) 11/05/2024 8:01 AM CDT Respiratory Rate 20 11/05/2024 8:01 AM CDT Oxygen Saturation 97% 11/05/2024 8:01 AM CDT Inhaled Oxygen Concentration - - Weight 134.4 kg (296 lb 6.4 oz) 11/05/2024 8:01 AM CDT Height 180.3 cm (5' 10.98) 11/05/2024 8:01 AM C DT Body Mass Index 41.36 11/05/2024 8:01 AM CDT Plan of Treatment Health Maintenance Due Date Last Done Comments Colon Cancer Screening-Colonoscopy 1970 Hepatitis C Screening 1970 Prostate Cancer Screening-PSA 1970 DTaP/Tdap/Td Vaccine (1 - Tdap) 1981 Hepatitis B Screening 1988 Regular Well Visit/Exam 18-64 1988 Pneumococcal vaccine <65 (1 of 2 - PCV) 1989 Zoster Vaccine (1 of 2) 2020 Covid-19 Vaccine (3 - 2024-2 6 season) 2025 05/29/2020, 05/08/2020 Influenza Vaccine (#1) 2025 3, 03/27/2022, 03/20/2020, Additional history exists Albumin Creatinine Ratio, Urine 02/25/2025 , 05/09/2022 eGFR 02/25/2025 02/26/2024, 06/21, 10/22/2020 Hemoglobin A1C 05/05/2025 11/03/2024, 12/2023, 09/25/2022, Additional history exists Dilated Eye Exam 07/22/2025 07/23/2023 Lipid Panel 11/03/2025 11/03/2024, 12/2023, 05/09/2022 Depression Screening 11/05/2025 11/05/2024, 02/28/2024, 07/12/2023, Additional history exists Foot Exam 11/05/2025 11/05/2024, 06/22, 09/25/2022, Additional history exists Procedures Procedure Name Priority Date/Time Associated Diagnosis Comments HEMOGLOBIN A1C Routine 11/03/2024 Type 2 diabetes mellitus with hyperglycemia, without long-term current use of insulin (HCC) LIPID PANEL Routine 11/03/2024 Type 2 diabetes mellitus with hyperglycemia, without long-term current use of insulin (HCC) Hypertension associated with diabetes (HCC) Mixed hyperlipidemia COMPREHENSIVE METABOLIC PANEL Routine 02/26/2024 Hypertension associated with diabetes (HCC) Diabetes mellitus due to underlying condition with hyperglycemia, without long-term current use of insulin (HCC) ALBUMIN CREATININE RATIO, URINE Routine 02/26/2024 Diabetes mellitus due to underlying condition with hyperglycemia, without long-term current use of insulin (HCC) DIABETIC EYE EXAM Routine 07/23/2023 2:4 6 PM AUDOGRAPH OPERATOR from Last 3 Months or Most Recently Relevant to Health Maintenance Results * (ABNORMAL) Hemoglobin A1c (11/03/2024) SCRIBED Hemoglobin A1c 7.2(A) 4.0 - 5.6 % EXTERNAL LAB Blood 11/03/2024 Tyler Cohn MD LAB BLOOD ORDERABLES Final Result Performing Organization Address [facility] de Phone Number EXTERNAL LAB * (ABNORMAL) Lipid panel (11/03/2024) SCRIBED Cholesterol, Total 125 30 - 199 mg/dL EXTERNAL LAB SCRIBED Triglycerides 122 <=149 mg/dL EXTERNAL LAB SCRIBED HDL 42 >=40 mg/dL EXTERNAL LAB SCRIBED LDL 59 <=129 mg/dL EXTERNAL LAB Scribed Non-HDL Cholesterol 0 NONE mg/dL EXTERNAL LAB SCRIBED Total Cholesterol/HDL Ratio 0 NONE EXTERNAL LAB Blood 11/03/2024 Tyler Cohn MD LAB BLOOD ORDERABLES Final Result Performing Organization Address [facility] Phone Number EXTERNAL LAB * Albumin Creatinine Ratio, Urine (02/26/2024) SCRIBED Creatinine, Urine 82.3 - - - EXTERNAL LAB SCRIBED Microalbumin <6.0 0 - 16 EXTERNAL LAB SCRIBED Microalb/Creat Ratio <7.3 0 - 30 EXTERNAL LAB Urine 02/26/2024 Tyler Cohn MD LAB URINE ORDERABLES Final Result Performing Organization Address [facility] de Phone Number EXTERNAL LAB * (ABNORMAL) Comprehensive metabolic panel [...] - 59 Units/L EXTERNAL LAB SCRIBED eGFR 0 0 - 0 EXTERNAL LAB SCRIBED eGFR >60 0.7 - 1.3 EXTERNAL LAB Blood 02/26/2024 Tyler Cohn MD LAB BLOOD ORDERABLES Final Result EXTERNAL LAB * Diabetic Eye Exam (07/23/2023 2:46 PM AUDOGRAPH OPERATOR) Historical Provider HEALTH MAINTENANCE Final Result from Last 3 Months or Most Recently Relevant to Health Maintenance Insurance [address] [place] [id number] [facility]/PPO Address: [facility] [address] [place] [address] [facility] H[facility]/PPO Address: [address] [address] Care Teams Manager Mba Relationship Specialty Start Date End Date Tyler Cohn MD PCP - General Family Practice 12/09/18
--- OUTSIDE RECORDS SUMMARY | 2025-05-06 13:42 | XMS_ITS | Encounter Summary ---
Author Organization [facility] Facility Care Team Providers Care Manager Dialysis Name Role Phone Tyler Cohn MD Primary Care Provider +1- [phone] Encounter Details Date Type Department Care Team (Latest Contact Info) Description 11/07/2017 Orders Only [facility] CLINCONV ProviderNatali MD [address] [place] [id number] Social History Tobacco Use Types Packs/Day Years Used Date Smoking Tobacco: Never Assessed Sex and Gender Information Value Date Recorded Sex Assigned at Not on file Legal Sex Male 8:54 PM DRUG CLERK Gender Identity Not on file Sexual Orientation [...] on filedocumented in this encounter Care Teams Manager Dialysis Relationship Specialty Start Date End Date Tyler Cohn MD PCP - General Family Practice 12/09/18 documented as of this encounter
--- OUTSIDE RECORDS SUMMARY | 2025-05-06 13:42 | XMS_ITS | Encounter Summary ---
Author Organization [facility] Facility Care Team Providers Care Computerized Table Cutter Name Role Phone Tyler Cohn MD Primary Care Provider +1- [phone] Encounter Details Date Type Department Care Team (Latest Contact Info) Description 11/04/2016 Orders Only [facility] CLINCONV ProviderNatali MD [address] [place] [id number] Social History Tobacco Use Types Packs/Day Years Used Date Smoking Tobacco: Never Assessed Sex and Gender Information Value Date Recorded Sex Assigned at Not on file Legal Sex Male 8:54 PM DELIVERY AND INSTALLATION SUBCONTRACTOR Gender Identity Not on file Sexual Orientation [...] on filedocumented in this encounter Care Teams Computerized Table Cutter Relationship Specialty Start Date End Date Tyler Cohn MD PCP - General Family Practice 12/09/18 documented as of this encounter
--- OUTSIDE RECORDS SUMMARY | 2025-05-06 13:42 | XMS_ITS | Encounter Summary ---
Author Organization [facility] Facility Care Team Providers Care Web Support Engineer Name Role Phone Tyler Cohn MD Primary Care Provider +1- [phone] Encounter Details Date Type Department Care Team (Latest Contact Info) Description 08/14/2017 Orders Only [facility] CLINCONV ProviderNatali MD [address] [place] [address] Social History Tobacco Use Types Packs/Day Years Used Date Smoking Tobacco: Never Assessed Sex and Gender Information Value Date Recorded Sex Assigned at Not on file Legal Sex Male 8:54 PM RETAIL OFFICE MANAGER Gender Identity Not on file Sexual Orientation [...] on filedocumented in this encounter Care Teams Web Support Engineer Relationship Specialty Start Date End Date Tyler Cohn MD PCP - General Family Practice 12/09/18 documented as of this encounter
--- OUTSIDE RECORDS SUMMARY | 2025-05-06 13:42 | XMS_ITS | Encounter Summary ---
Author Organization [facility] Facility Care Team Providers Care Paper Stacker Name Role Phone Tyler Cohn MD Primary Care Provider +1- [phone] Encounter Details Date Type Department Care Team (Latest Contact Info) Description 02/13/2017 Orders Only [facility] CLINCONV ProviderNatali MD [address] [place] [address] Social History Tobacco Use Types Packs/Day Years Used Date Smoking Tobacco: Never Assessed Sex and Gender Information Value Date Recorded Sex Assigned at Not on file Legal Sex Male 8:54 PM WATCH AND CLOCK REPAIR CLERK Gender Identity Not on file Sexual [...] on filedocumented in this encounter Care Teams Paper Stacker Relationship Specialty Start Date End Date Tyler Cohn MD PCP - General Family Practice 12/09/18 documented as of this encounter
--- OUTSIDE RECORDS SUMMARY | 2025-05-06 13:42 | XMS_ITS | Encounter Summary ---
Author Organization [facility] Facility Care Team Providers Care Pattern Ruler Name Role Phone Tyler Cohn MD Primary Care Provider +1- [phone] Encounter Details Date Type Department Care Team (Latest Contact Info) Description 06/15/2018 Orders Only [facility] CLINCONV ProviderNatali MD [address] [place] [address] Social History Tobacco Use Types Packs/Day Years Used Date Smoking Tobacco: Never Assessed Sex and Gender Information Value Date Recorded Sex Assigned at Not on file Legal Sex Male 8:54 PM CONCRETE CARPENTER Gender Identity Not on file Sexual Orientation Not on file documented as of this encounter Plan of Treatment Not on file documented as of this encounter Procedures Procedure Name Priority Date/Time Associated Diagnosis Comments SCAN - LABS 06/17/2018 12:00 AM CONCRETE CARPENTER SCAN - LABS 06/17/2018 12:00 AM CONCRETE CARPENTER documented in this encounter Results * SCAN - LABS (06/17/2018 12:00 AM CONCRETE CARPENTER) Narrative 06/17/2018 12:00 AM CONCRETE CARPENTER Ordered by an unspecified provider. Historical Provider Final Res ult * SCAN - LABS (06/17/2018 12:00 AM CONCRETE CARPENTER) Narrative 06/17/2018 12:00 AM CONCRETE CARPENTER Ordered by an unspecified provider. Historical Provider Final Res ult documented in this encounter Visit Diagnoses Not on filedocumented in this encounter Care Teams Pattern Ruler Relationship Specialty Start Date End Date Tyler Cohn MD PCP - General Family Practice 12/09/18 documented as of this encounter
[2025-05-06 15:24] LABS: MALB Creatinine Ratio 5.7 mg/g (0-30)
== END 2025-05-06 11:23 | disposition home or self-care (01) ==
PROVIDERS: PCP Family Medicine; Visit Provider Family Medicine
DX: Z12.5 Encounter for screening for malignant neoplasm of prostate (principal); E11.59 Type 2 diabetes mellitus with other circulatory complications; I52 Other heart disorders in diseases classified elsewhere; E11.65 Type 2 diabetes mellitus with hyperglycemia; E78.6 Lipoprotein deficiency
CPT/HCPCS: 36415; 80053; 80061; 82043; 83036; 84153; 85025